=== PATIENT | male | born 1995 | race African-American/Black ===

== ENCOUNTER 2016-10-08 | Emergency (ER) | payer SELFPAY ==
--- NOTE | 2016-10-08 12:24 | ED ---
General Adult HPI - General Chief complaint: Headache Stated complaint: migraine Time Seen by Provider: 10/08/16 11:53 Source: patient, RN notes reviewed Mode of arrival: ambulatory Limitations: no limitations - History of Present Illness Initial comments: Patient is a 20-year-old male who presents emergency room today with a chief complaint of wanting a "checkup". Patient does admit that it's been a while since been of the doctor. He doesn't that he respiratory infection a week ago. He states that since at times been having headaches besides had off-and-on. Patient also admits that he's been having some chest pain and anterior chest wall off and on as well. Patient states that the headaches come and go. Currently not having headache at this time. Patient also admits to chest pain that just lasts for a few seconds at a time to a few minutes. Patient states also not having chest pain. Patient denies any other complaints or associated symptoms at this time. Patient denies any recent fever, chills, shortness of breath, back pain, abdominal pain, nausea or vomiting, numbness or tingling, dysuria or hematuria, constipation or diarrhea, visual changes, or any other complaints. - Related Data Home Medications Medication Instructions Recorded Confirmed No Known Home Medications [No 04/17/14 10/08/16 Known Home Medications] Allergies Allergy/AdvReac Type Severity Reaction Status Date / Time No Known Allergies Allergy Verified 10/08/16 11:48 Review of Systems ROS Statement: Those systems with pertinent positive or pertinent negative responses have been documented in the HPI. ROS Other: All systems not noted in ROS Statement are negative. Past Medical History Past Medical History: No Reported History History of Any Multi-Drug Resistant Organisms: None Reported Past Surgical History: No Surgical Hx Reported Past Psychological History: No Psychological Hx Reported Smoking Status: Never smoker Past Alcohol Use History: None Reported Past Drug Use History: None Reported General Exam - General Exam Comments Initial Comments: General: The patient is awake and alert, in no distress, and does not appear acutely ill. Eye: Pupils are equal, round and reactive to light, extra-ocular movements are intact. No nystagmus. There is normal conjunctiva bilaterally. No signs of icterus. Ears, nose, mouth and throat: There are moist mucous membranes and no oral lesions. Neck: The neck is supple, there is no tenderness or JVD. Cardiovascular: There is a regular rate and rhythm. No murmur, rub or gallop is appreciated. Respiratory: Lungs are clear to auscultation, respirations are non-labored, breath sounds are equal. No wheezes, stridor, rales, or rhonchi. Gastrointestinal: Soft, non-distended, non-tender abdomen without masses or organomegaly noted. There is no rebound or guarding present. No CVA tenderness. Bowel sounds are unremarkable. Musculoskeletal: Normal ROM, no tenderness. Strength 5/5. Sensation intact. Pulses equal bilaterally 2+. Neurological: A&O x 3. CN II-XII intact, There are no obvious motor or sensory deficits. Coordination appears grossly intact. Speech is normal. Skin: Skin is warm and dry and no rashes or lesions are noted. Psychiatric: Cooperative, appropriate mood & affect, normal judgment. Limitations: no limitations Course Vital Signs 10/08/16 11:32 Temperature 98 F Pulse Rate 72 Respiratory 20 Rate Blood Pressure 156/91 O2 Sat by Pulse 99 Oximetry EKG Findings - EKG Comments: EKG Findings:: EKG performed at 1218: A 12-lead EKG was performed and interpreted by me as showing the following: Rate is 64, and rhythm is normal sinus. There are normal QRS complexes and normal R-wave progression. ST segments have no elevation or depression, and OR segments appear normal. Medical Decision Making - Medical Decision Making Patient examined here in the emergency room shows no signs of distress. Vitals are stable. Patient does admit to upper respiratory infection last week. Was discussed with patient about a chest x-ray and EKG. Patient one to know how long this would take. States that his ride is waiting for him. He is in agreement to have EKG done as this will be a quick test. Has declined a chest x -ray. States he does not have family doctor but will follow up with on-call doctor for appointment. Patient request work note. Disposition Clinical Impression: Chest pain, Headache Disposition: HOME SELF-CARE Condition: Good Instructions: Acute Headache (ED) Additional Instructions: Please follow-up with family doctor. Please return to emergency room if any symptoms increase or worsen or for any other concerns. Referrals: None,Stated [Primary Care Provider] - 1-2 days Girish Rossi MD [STAFF PHYSICIAN] - 1-2 days Time of Disposition: 12:18
== END 2016-10-08 12:40 | disposition home or self-care (01) ==
CPT/HCPCS: 93005; 99284

== ENCOUNTER 2017-05-23 18:46 | Emergency (ER) | payer OTHER ==
[2017-05-23 18:54] VITALS: BP 132/72; PULSE 64; RESP 18; TEMP 98.5
--- NOTE | 2017-05-23 19:18 | ED ---
General Adult HPI - General Chief complaint: Dental/Oral Stated complaint: Dental Time Seen by Provider: 05/23/17 18:57 Source: patient, RN notes reviewed Mode of arrival: ambulatory Limitations: no limitations - History of Present Illness Initial comments: 21 yo male presents to the emergency Department chief complaint of left lower jaw pain. patient states he has pain to the left side of the face. Patient states it radiates up her left side of the face.patient is thin for a few days. Patient states it's been hard to even drink for this. He denies any pain opening closing or any radiation into the neck. patient states he hasn't had any fever chills. Patient's pain just continued to worsen so he thought that he should be seen.Patient denies any recent fever, chills, shortness of breath, chest pain, back pain, abdominal pain, nausea vomiting, numbness or tingling, dysuria or hematuria, constipation or diarrhea, headaches or visual changes, or any other current symptoms. - Related Data Home Medications Medication Instructions Recorded Confirmed Acetaminophen/Diphenhydramine 1 tab PO ONCE PRN 05/23/17 05/23/17 [Tylenol PM Extra Strength] Aspirin [Children's Aspirin] 324 mg PO ONCE PRN 05/23/17 05/23/17 Ibuprofen [Motrin] 600 mg PO ONCE PRN 05/23/17 05/23/17 Naproxen Sodium 440 mg PO ONCE PRN 05/23/17 05/23/17 Previous Rx's Medication Instructions Recorded Penicillin V Potassium [Pen Vee K] 500 mg PO TID #40 tab 05/23/17 traMADol HCl [Ultram] 50 mg PO Q6H PRN #20 tab 05/23/17 Allergies Allergy/AdvReac Type Severity Reaction Status Date / Time No Known Allergies Allergy Verified 05/23/17 19:10 Review of Systems ROS Statement: Those systems with pertinent positive or pertinent negative responses have been documented in the HPI. ROS Other: All systems not noted in ROS Statement are negative. Past Medical History Past Medical History: No Reported History History of Any Multi-Drug Resistant Organisms: None Reported Past Surgical History: No Surgical Hx Reported Past Psychological History: No Psychological Hx Reported Smoking Status: Never smoker Past Alcohol Use History: None Reported Past Drug Use History: None Reported General Exam Limitations: no limitations General appearance: alert, in no apparent distress Eye exam: Present: normal appearance ENT exam: Present: normal exam, mucous membranes moist, other (patient appears to have tooth #17 choking through, no abscess no gingival enlargement, otherwise good sensation) Neck exam: Present: normal inspection. Absent: tenderness, meningismus, lymphadenopathy Respiratory exam: Present: normal lung sounds bilaterally. Absent: respiratory distress, wheezes, rales, rhonchi, stridor Cardiovascular Exam: Present: regular rate, normal rhythm, normal heart sounds. Absent: systolic murmur, diastolic murmur, rubs, gallop, clicks Neurological exam: Present: alert, oriented X3 Psychiatric exam: Present: normal affect, normal mood Skin exam: Present: warm, dry, intact, normal color. Absent: rash Course Vital Signs 05/23/17 18:52 Temperature 98.5 F Pulse Rate 64 Respiratory 18 Rate Blood Pressure 132/72 O2 Sat by Pulse 98 Oximetry Medical Decision Making - Medical Decision Making 21-year-old male presents emergency Department chief complaint of left-sided dental pain. We discussed follow-up. We discussed patient's questions. He stated understood the plan. Return parameters were discussed. He will be discharged. Disposition Clinical Impression: Impacted molar Disposition: HOME SELF-CARE Condition: Stable Instructions: Toothache (ED) Additional Instructions: Please use medication as discussed. Please follow up with family doctor if symptoms have not improved over the next two days. Please return to the emergency room if your symptoms increase or worsen or for any other concerns. [facility] [address] [place] [address] [phone] (existing clients only) For new clients: [phone] 1st consult: $50 (includes Xrays) Usually 30% less then private dentist for visits after. [employer] Have to pay $50 for Xrays anmd rest is covered. [phone] Prescriptions: Penicillin V Potassium [Pen Vee K] 500 mg PO TID #40 tab traMADol HCl [Ultram] 50 mg PO Q6H PRN #20 tab PRN Reason: Pain Referrals: Lesvia Guidry MD [STAFF PHYSICIAN] - 1-2 days Time of Disposition: 19:18
== END 2017-05-23 19:23 | disposition home or self-care (01) ==
LOC: EC 18:46
DX: K01.1 Impacted teeth (principal)
CPT/HCPCS: 99282